=== PATIENT | female | born 1940 | race Caucasian/White ===

== ENCOUNTER 2016-05-08 13:38 | Outpatient (CLI) | payer MEDICARE, OTHER | END 2016-05-08 13:39 | disposition home or self-care (01) | DX: I48.91 Unspecified atrial fibrillation (principal) ==

== ENCOUNTER 2016-05-16 11:11 | Outpatient (CLI) | payer MEDICARE, OTHER | END 2016-05-16 11:12 | disposition home or self-care (01) | DX: I48.91 Unspecified atrial fibrillation (principal) ==

== ENCOUNTER 2016-05-23 17:43 | Outpatient (CLI) | payer MEDICARE, OTHER | END 2016-05-23 17:44 | disposition home or self-care (01) | DX: M89.9 Disorder of bone, unspecified (principal); Z85.79 Personal history of other malignant neoplasms of lymphoid, hematopoietic and related tissues ==

== ENCOUNTER 2016-05-23 17:44 | Outpatient (CLI) | payer MEDICARE, OTHER ==
[2016-05-23] MEDS ORDERED: IOPAMIDOL-300 100 ML VIAL IVP ONE (21:58)
== END 2016-05-23 17:45 | disposition home or self-care (01) ==
DX: M48.54XA Collapsed vertebra, not elsewhere classified, thoracic region, initial encounter for fracture (principal); M48.56XA Collapsed vertebra, not elsewhere classified, lumbar region, initial encounter for fracture; M89.9 Disorder of bone, unspecified; Z85.79 Personal history of other malignant neoplasms of lymphoid, hematopoietic and related tissues; M51.86 Other intervertebral disc disorders, lumbar region
CPT/HCPCS: 72133; 72194; Q9967

== ENCOUNTER 2016-06-04 | Outpatient (CLI) | payer MEDICARE, OTHER | END 2016-06-04 21:33 | disposition critical access hospital (66) | CPT/HCPCS: A0425; A0427 ==

== ENCOUNTER 2016-06-04 13:40 | Outpatient (CLI) | payer MEDICARE, OTHER | END 2016-06-04 13:41 | disposition home or self-care (01) | DX: I48.91 Unspecified atrial fibrillation (principal) ==

== ENCOUNTER 2016-06-04 21:52 | Inpatient (IN) | payer MEDICARE, OTHER ==
[2016-06-04] MEDS ORDERED: PHYTONADIONE 10 MG/ML AMP IVP STA (22:12)
[2016-06-04] MEDS ORDERED: PHYTONADIONE 10 MG/ML AMP ONE (22:26)
[2016-06-04] MEDS ORDERED: PROCHLORPERAZINE 10 MG/2 ML VIAL IVP PRN (23:12)
[2016-06-04] MEDS ORDERED: ONDANSETRON 4 MG/2 ML VIAL IVP PRN (23:12)
[2016-06-04] MEDS ORDERED: SODIUM CHLORIDE FLUSH 0.9% 10 ML SYRINGE IVP PRN (23:12)
[2016-06-05] MEDS: PANTOPRAZOLE 40 MG VIAL IVP SCH ×3 (00:56→15:23)
[2016-06-05] MEDS: SODIUM CHLORIDE FLUSH 0.9% 10 ML SYRINGE IVP SCH ×3 (00:56→21:37)
[2016-06-05] MEDS: ACETAMINOPHEN 325 MG TABLET PO PRN ×2 (04:09→21:44)
[2016-06-05] MEDS: LEVOTHYROXINE 25 MCG TABLET PO SCH (06:28)
[2016-06-05] MEDS: METOPROLOL TARTRATE 50 MG TABLET PO SCH (08:16)
[2016-06-05] MEDS: LISINOPRIL 5 MG TABLET PO SCH (08:16)
[2016-06-05] MEDS: POLYETHYLENE GLYCOL 3350 17 GM PACKET PO SCH (08:20)
[2016-06-05] MEDS: SODIUM/POTASSIUM/MAG SULFATES 354 ML PREP KIT PO SCH (18:04)
[2016-06-05] MEDS ORDERED: ZINC OXIDE 20% OINT 28.35 GM TUBE TOP PRN (20:38)
[2016-06-06] MEDS: SODIUM/POTASSIUM/MAG SULFATES 354 ML PREP KIT PO SCH (04:08)
[2016-06-06] MEDS: SODIUM CHLORIDE FLUSH 0.9% 10 ML SYRINGE IVP SCH (06:11)
[2016-06-06] MEDS: PANTOPRAZOLE 40 MG VIAL IVP SCH (06:24)
[2016-06-06] MEDS ORDERED: LACTATED RINGERS 1,000 ML IV ONE (07:15)
[2016-06-06] MEDS ORDERED: BENZOCAINE/TETRACAINE/BUTAMBEN SPRAY 56 GM TOP ONE (07:24)
[2016-06-06] MEDS ORDERED: LIDO GARGLE 30 ML BOTTLE PO ONE (07:24)
[2016-06-06] MEDS ORDERED: fentaNYL 100 MCG/2 ML VIAL IVP ONE (07:24)
[2016-06-06] MEDS: LISINOPRIL 5 MG TABLET PO SCH (09:25)
[2016-06-06] MEDS: LEVOTHYROXINE 25 MCG TABLET PO SCH (09:25)
[2016-06-06] MEDS: METOPROLOL TARTRATE 50 MG TABLET PO SCH (09:26)
[2016-06-06] MEDS: POLYETHYLENE GLYCOL 3350 17 GM PACKET PO SCH (09:27)
[2016-06-06] MEDS ORDERED: oxyCODONE 5 MG TABLET PO PRN (10:05)
[2016-06-06] MEDS ORDERED: MIDAZOLAM 2 MG/2 ML VIAL IVP ONE (13:40)
[2016-06-07] MEDS ORDERED: fentaNYL 100 MCG/2 ML VIAL IVP ONE (07:14)
== END 2016-06-06 13:41 | disposition home or self-care (01) | DRG 812 ==
PROC: 30233K1 Transfusion of Nonautologous Frozen Plasma into Peripheral Vein, Percutaneous Approach (ICD-10-PCS; principal; 2016-06-04)
PROC: 30233N1 Transfusion of Nonautologous Red Blood Cells into Peripheral Vein, Percutaneous Approach (ICD-10-PCS; 2016-06-05)
PROC: 0D9 Gastrointestinal System, Drainage (ICD-10-PCS; 2016-06-06)
PROC: 0DJ08ZZ Inspection of Upper Intestinal Tract, Via Natural or Artificial Opening Endoscopic (ICD-10-PCS; 2016-06-06 06:30)
DX: D62 Acute posthemorrhagic anemia (principal); K92.2 Gastrointestinal hemorrhage, unspecified; D50.0 Iron deficiency anemia secondary to blood loss (chronic); I48.91 Unspecified atrial fibrillation; K55.9 Vascular disorder of intestine, unspecified; K62.5 Hemorrhage of anus and rectum; E87.1 Hypo-osmolality and hyponatremia; S22.080A Wedge compression fracture of T11-T12 vertebra, initial encounter for closed fracture; S32.020A Wedge compression fracture of second lumbar vertebra, initial encounter for closed fracture; Z90.49 Acquired absence of other specified parts of digestive tract; I48.2 Chronic atrial fibrillation; Z79.01 Long term (current) use of anticoagulants; E03.9 Hypothyroidism, unspecified; Z92.3 Personal history of irradiation; I10 Essential (primary) hypertension; Z85.830 Personal history of malignant neoplasm of bone; Z85.060 Personal history of malignant carcinoid tumor of small intestine; Z85.038 Personal history of other malignant neoplasm of large intestine; Z87.891 Personal history of nicotine dependence; Z80.1 Family history of malignant neoplasm of trachea, bronchus and lung; Z80.3 Family history of malignant neoplasm of breast; E53.8 Deficiency of other specified B group vitamins; E55.9 Vitamin D deficiency, unspecified; M89.9 Disorder of bone, unspecified; K43.9 Ventral hernia without obstruction or gangrene; K64.8 Other hemorrhoids; K64.4 Residual hemorrhoidal skin tags; X58.XXXA Exposure to other specified factors, initial encounter; Z79.899 Other long term (current) drug therapy

== ENCOUNTER 2016-06-07 13:11 | Outpatient (CLI) | payer MEDICARE, OTHER | END 2016-06-07 13:12 | disposition home or self-care (01) | DX: I48.91 Unspecified atrial fibrillation (principal) ==

== ENCOUNTER 2016-06-14 13:55 | Outpatient (CLI) | payer MEDICARE, OTHER | END 2016-06-14 13:56 | disposition home or self-care (01) | DX: I48.91 Unspecified atrial fibrillation (principal) ==

== ENCOUNTER 2016-06-21 13:13 | Outpatient (CLI) | payer MEDICARE, OTHER | END 2016-06-21 13:14 | disposition home or self-care (01) | DX: I48.91 Unspecified atrial fibrillation (principal) ==

== ENCOUNTER 2016-06-28 21:32 | Outpatient (CLI) | payer MEDICARE, OTHER | END 2016-06-28 21:33 | disposition home or self-care (01) | DX: I48.91 Unspecified atrial fibrillation (principal) ==

== ENCOUNTER 2016-07-05 08:00 | Outpatient (CLI) | payer MEDICARE, OTHER | END 2016-07-05 08:01 | disposition home or self-care (01) | DX: I48.91 Unspecified atrial fibrillation (principal) ==

== ENCOUNTER 2016-07-12 13:02 | Outpatient (CLI) | payer MEDICARE, OTHER | END 2016-07-12 13:03 | disposition home or self-care (01) | DX: I48.91 Unspecified atrial fibrillation (principal) ==

== ENCOUNTER 2016-07-19 13:08 | Outpatient (CLI) | payer MEDICARE, OTHER | END 2016-07-19 13:09 | disposition home or self-care (01) | DX: I48.91 Unspecified atrial fibrillation (principal) ==

== ENCOUNTER 2016-07-26 13:19 | Outpatient (CLI) | payer MEDICARE, OTHER | END 2016-07-26 13:20 | disposition home or self-care (01) | DX: I48.91 Unspecified atrial fibrillation (principal) ==

== ENCOUNTER 2016-07-29 09:54 | Outpatient (CLI) | payer MEDICARE, OTHER | END 2016-07-29 09:55 | disposition home or self-care (01) | DX: I48.91 Unspecified atrial fibrillation (principal) ==

== ENCOUNTER 2016-08-02 14:11 | Outpatient (CLI) | payer MEDICARE, OTHER | END 2016-08-02 14:12 | disposition home or self-care (01) | DX: I48.91 Unspecified atrial fibrillation (principal) ==

== ENCOUNTER 2016-08-03 01:46 | Outpatient (CLI) | payer MEDICARE, OTHER | END 2016-08-03 01:47 | disposition home or self-care (01) | DX: R19.7 Diarrhea, unspecified (principal) ==

== ENCOUNTER 2016-08-08 08:00 | Outpatient (CLI) | payer MEDICARE, OTHER | END 2016-08-08 08:01 | disposition home or self-care (01) | DX: I48.91 Unspecified atrial fibrillation (principal) ==

== ENCOUNTER 2016-08-13 12:30 | Outpatient (CLI) | payer MEDICARE, OTHER | END 2016-08-13 12:31 | disposition home or self-care (01) | DX: Z51.5 Encounter for palliative care (principal); C90.02 Multiple myeloma in relapse; R19.7 Diarrhea, unspecified; R15.9 Full incontinence of feces; K59.00 Constipation, unspecified; L89.100 Pressure ulcer of unspecified part of back, unstageable; L89.102 Pressure ulcer of unspecified part of back, stage 2; R53.83 Other fatigue; M54.9 Dorsalgia, unspecified; F32.9 Major depressive disorder, single episode, unspecified; Z87.891 Personal history of nicotine dependence; Z90.49 Acquired absence of other specified parts of digestive tract; Z79.899 Other long term (current) drug therapy; Z85.060 Personal history of malignant carcinoid tumor of small intestine ==

== ENCOUNTER 2016-08-16 13:18 | Outpatient (CLI) | payer MEDICARE, OTHER | END 2016-08-16 13:19 | disposition home or self-care (01) | DX: I48.91 Unspecified atrial fibrillation (principal) ==

== ENCOUNTER 2016-08-23 08:48 | Outpatient (CLI) | payer MEDICARE, OTHER | END 2016-08-23 23:59 | DX: I48.91 Unspecified atrial fibrillation (principal) ==

== ENCOUNTER 2016-09-02 13:16 | Outpatient (CLI) | payer MEDICARE, OTHER | END 2016-09-02 23:59 | disposition home or self-care (01) | DX: I48.91 Unspecified atrial fibrillation (principal) ==

== ENCOUNTER 2016-09-09 13:02 | Outpatient (CLI) | payer MEDICARE, OTHER | END 2016-09-09 13:03 | disposition home or self-care (01) | DX: I48.91 Unspecified atrial fibrillation (principal) ==

== ENCOUNTER 2016-09-23 08:00 | Outpatient (CLI) | payer MEDICARE, OTHER | END 2016-09-23 08:01 | disposition home or self-care (01) | LOC: LAB.N 08:00 | PROVIDERS: ATTEND Nurse Practitioner Gerontology | DX: I48.91 Unspecified atrial fibrillation (principal) | CPT/HCPCS: 85610 ==

== ENCOUNTER 2016-09-27 13:14 | Outpatient (CLI) | payer MEDICARE, OTHER ==
--- NOTE | 2016-10-01 07:08 | CONSULTATION NOTE ---
DATE OF CONSULTATION: 09/27/2016 00:00:00 REQUESTING PROVIDER: Yuridia Altamirano MD (Wendy) TIME OF VISIT: 1:45-2:30. TOPIC: Followup palliative care consult. Thank you, Dr. Altamirano, for asking the Palliative Care Consult Service to be involved in the care of you r patient. I am asked to provide support for pain and symptom management and goals of care. EXAM LIMITATIONS: The patient is severely depressed and easily overwhelmed; has difficulty concentrat ing on our visit or participating in counseling. 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 She was also recently diagnosed with multiple myeloma of lambda light chain type, she is currently on Velcade and dexamethasone; and she does have ongoing pancytopenia secondary to the myeloma progression of bone ma rrow. This has required intermittent blood transfusions. She has a history of colon cancer status pos t resection in 2010 with recurrence in 2014. She did have a hospitalization in May, had a colonos copy with multiple testing on her stool, all of which have come back negative. Her biggest distress continues to be her ongoing chronic diarrhea. This has essentially somewhat over whelmed her life, though she has been having it controlled fairly well on 2 doses of Lomotil in the e vening an hour before she goes to bed, and again at bedtime. Her biggest fear has been incontinence o f it. She does occasionally take some during the day, but does have every 3-4 days fairly loose stool that worries her incessantly. She did have one episode of incontinence over the last several weeks, but otherwise it is much better controlled. She does have a fairly pronounced abdominal hernia, which causes her quite a bit of angst as well as discomfort. She just has difficulty, really, considering a different way despite her friend Thor's gentle coaxing of how better to manage this and is "doing her best." She does have ongoing back pain with a history of compression fractures at 12, 11, L2 with a new lyti c lesion on S1. On examination, when I saw her on 08/13/2016, she also had a pressure ulcer that was causing a lot of acute pain. This has since resolved. Her pain is much improved. She is managed on ju st a daily oxycodone with occasional second one in the evening. She does appear quite frail in nature . She has difficulty making eye contact. She gets easily overwhelmed with questions or talking about her current situation. She does feel hopeless and helpless, but is adamant that she is not depressed. SYMPTOM BURDEN: She has intermittent back pain. She reports fatigue most days and is sort of overwhel med by just managing her current routine and trying to get enough food and calories in. She is up at night to urinate, and as well is concerned about being incontinent of stool. She does have a poor jr etite, and does get shortness of breath with activity. She denies depression, though presents with de pressive symptoms, is highly anxious, and perceives her quality of life as quite poor. ALLERGIES: NO KNOWN DRUG ALLERGIES. MEDICATIONS: No changes from her medication list from 08/13/2016. CODE STATUS: She is a FULL CODE. Her durable power of health workers compensation attorney is her stepdaughter, Liv Calero, ; her friend Thor, provides most of her support, as well as transportation and oversight of getting her me dical needs met. BRIEF SOCIAL HISTORY: The patient has very little community support, other than her friend Thor. She, herself, is very introverted; the thought of someone coming in and helping her just about puts her o lorena the edge. She is and has limited financial resources, including no Medicare D for prescri ptions. The patient is able to ambulate short distances, though with increase in her lower extremity edema, t his is more difficult. She is quite weak. She has been only doing sponge baths, as she is afraid of f alling. She gets her IADL needs assistance from her neighbor, Thor. [facility] are performance status of 80%. REVIEW OF SYSTEMS HEENT: She does have dentures; she hates swallowing pills. She has mild hearing loss. CARDIOVASCULAR: She denies chest pain. RESPIRATORY: She does have shortness of breath with activity. GASTROINTESTINAL: As noted above, part of her difficulty actually is also with meal prep. GENITOURINARY: She is voiding without difficulty. MUSCULOSKELETAL: She does sit most of the time, has a lot of stiffness and weakness, and now with her back pain she is quite deconditioned. INTEGUMENTARY: Her pressure ulcer is improved. NEUROLOGIC: She is quite emotionally distressed; does appear to have some memory problems, difficulty tracking the conversation. I had hoped to get a baseline MMSE, but it appears she is too emotionally fragile to go there today. PSYCHIATRIC: The patient presents with a depressed mood and anxiety. She also has a lot of distress w hen asked if she was depressed. She says, "well, wouldn't you be" with all the things that she has be en going on. ENDOCRINE: She is on thyroid medication. HEMATOLOGIC/IMMUNOLOGIC: She has had some difficulty with pancytopenia, had received intermittent tra nsfusions, and some erratic pro-times related to her chemotherapy. PHYSICAL EXAMINATION GENERAL APPEARANCE: The patient appears quite pale. She has difficulty making eye contact, is very te arful, appears fatigued. HEENT: Eyes: Wearing sunglasses, periorbital edema. ENT: She has dentures. NECK: Trachea midline. No JVD. RESPIRATORY: Her breath sounds are diminished but clear. CARDIOVASCULAR: Her pulse is 52 and regular. ABDOMEN: She has a rounded hernia about the size of a cantaloupe, soft on palpation. Bowel tones are normal. SKIN: Does appear to healing nice and thinned. EXTREMITIES: She does have increased lower extremity edema 2 to 3+ up to about her thighs. She repor ts this has been longstanding before her multiple myeloma. I suspect it may also be related to some l ymphedema as well. PALLIATIVE CARE DISCUSSION/WHO IS PRESENT: Myself and her neighbor, Thor. I did try and coax the sol ent into describing some of her stressors, her barriers to getting assistance, tried to explore some of her strengths and if she found any savage. She reports she has absolutely no savage in her life. She polo es a miserable experience. She has just been waiting, that she is never going to get better, so why i s she doing all of this. When reviewed that there has been some improvement on her chemotherapy, she is quite distraught that she is just in this place, that she does not perceive it as a good quality o f life. When approached, she definitely does not want to talk to anybody, does not want a psychiatris t. When asked if she would consider some medication to help her feel a little bit better, such as an antidepressant, she was very adamant that she was not depressed and that she could not take one more pill. The patient has no drug coverage; had talked about just a fairly cheap old-fashioned trazodone that might help her with sleep and essentially got nowhere. Her neighbor, as well, is worried about h er mood and her ongoing distress; all feeling that if we could help her lighten up some, in her place of suffering, that she may find some acceptance of her current situation. I did address, again, perh aps needing help through the [facility] program, she was not interested. I suggested perhaps adaptive physical education specialist apy to help her get stronger, she cannot imagine another appointment; so many barriers, as far as thi ngs that might improve her current situation. IMPRESSION: This is a very fragile 76-year-old woman with history of colon cancer, now with multiple myeloma, receiving active treatment with high symptom burden of diarrhea, fatigue, pain, and existent ial distress. She does present with symptoms of depression, though she adamantly denies such. RECOMMENDATIONS/COUNSELING DONE 1. Diarrhea alternating with constipation. This does seem to be somewhat improved. She does still hav e a fluctuating status; they cannot tell if it is related to her timing of her chemotherapy. When she does finally go, her stools are quite watery and more likely related to her past surgical history. I did encourage perhaps some Metamucil; Thor did not think she would really drink it in a timely way. Patient does eat cookies, suggested just some fiber bars to help put a little bulk in her stool, so t hat she does not have so much incontinence and watery stool when she does have to go, particularly du ring the day. She is not currently interested in doing anything different with her Lomotil, so a new prescription was provided for her. Unfortunately she does not have prescription coverage, so this is very expensive for her. 2. Pain secondary to history of compression fractures. She is being managed mostly with just 1/2 oxyc odone in the a.m. and intermittent Tylenol. Her decubitus is healed, so the acute component of that i s improved. 3. Anorexia. Multifactorial in origin. She has poor intake including both food and fluids; is working as best she can in her estimation. She has no appetite. I did offer physical therapy for joãoi ng. Patient is quite sedentary. 4. Depressive symptoms. The patient is feeling overwhelmed. The patient would probably best benefit f rom some mirtazapine, though this is closer to $90 a month, outside of her budget; I did suggest perh aps some trazodone about 10$ a month, as this helps with pain, sleep, and depression. We could start really slowly and titrate up slowly. She was actually quite distressed by this. I did give a prescrip tion, though, to her neighbor, who says that often it takes time to talk her into things. She very mu ch dislikes changes and is overall perceiving her quality of life as quite poor and a high sense of s uffering as a result. 5. Advanced care planning. The patient does understand she has a serious illness, that it is not laura g to get better. She perceives her quality of life as poor and is just waiting for this "to all be ov er with." I did not present any further advanced care planning forms or conversation, just provided s upport of good listening regarding her distress. Time spent 45 minutes, with greater than 50% of this spent in counseling, coordination of care, attem pting to establish rapport, addressing depressive symptoms. The patient is quite resistant, multiple barriers and is easily overwhelmed. I will continue to work with her on a regular basis in hopes to m luis some progress and improve her quality of life. JOB #: [id number] EXT JOB #:[id number]
== END 2016-09-27 13:15 | disposition home or self-care (01) ==
LOC: PC 13:14
PROVIDERS: ATTEND Nurse Practitioner Adult Health
DX: Z51.5 Encounter for palliative care (principal); K52.9 Noninfective gastroenteritis and colitis, unspecified; K59.00 Constipation, unspecified; M54.9 Dorsalgia, unspecified; R63.0 Anorexia; R45.89 Other symptoms and signs involving emotional state; K46.9 Unspecified abdominal hernia without obstruction or gangrene; C90.00 Multiple myeloma not having achieved remission; Z79.899 Other long term (current) drug therapy; Z92.3 Personal history of irradiation; Z79.52 Long term (current) use of systemic steroids; Z85.038 Personal history of other malignant neoplasm of large intestine; Z79.891 Long term (current) use of opiate analgesic
CPT/HCPCS: 99215

== ENCOUNTER 2016-10-01 08:00 | Outpatient (CLI) | payer MEDICARE, OTHER | END 2016-10-01 08:01 | disposition home or self-care (01) | LOC: LAB.N 08:00 | PROVIDERS: ATTEND Nurse Practitioner Gerontology | DX: I48.91 Unspecified atrial fibrillation (principal) | CPT/HCPCS: 85610 ==

== ENCOUNTER 2016-10-07 08:00 | Outpatient (CLI) | payer MEDICARE, OTHER | END 2016-10-07 08:01 | disposition home or self-care (01) | LOC: LAB.N 08:00 | PROVIDERS: ATTEND Nurse Practitioner Gerontology | DX: I48.91 Unspecified atrial fibrillation (principal) | CPT/HCPCS: 85610 ==

== ENCOUNTER 2016-10-15 10:35 | Outpatient (CLI) | payer MEDICARE, OTHER | END 2016-10-15 10:36 | disposition home or self-care (01) | LOC: LAB.N 10:35 | PROVIDERS: ATTEND Nurse Practitioner Gerontology | DX: I48.91 Unspecified atrial fibrillation (principal) | CPT/HCPCS: 85610 ==

== ENCOUNTER 2016-10-21 11:08 | Outpatient (CLI) | payer MEDICARE, OTHER | END 2016-10-21 11:09 | disposition home or self-care (01) | LOC: LAB.N 11:08 | PROVIDERS: ATTEND Nurse Practitioner Gerontology | DX: I48.91 Unspecified atrial fibrillation (principal) | CPT/HCPCS: 85610 ==

== ENCOUNTER 2016-10-28 09:37 | Outpatient (CLI) | payer MEDICARE, OTHER | END 2016-10-28 09:38 | disposition home or self-care (01) | LOC: LAB.N 09:37 | PROVIDERS: ATTEND Nurse Practitioner Gerontology | DX: I48.91 Unspecified atrial fibrillation (principal) | CPT/HCPCS: 85610 ==

== ENCOUNTER 2016-11-04 22:10 | Outpatient (CLI) | payer MEDICARE, OTHER | END 2016-11-04 22:11 | disposition home or self-care (01) | LOC: LAB.N 22:10 | PROVIDERS: ATTEND Nurse Practitioner Gerontology | DX: I48.91 Unspecified atrial fibrillation (principal) | CPT/HCPCS: 85610 ==

== ENCOUNTER 2016-11-11 08:00 | Outpatient (CLI) | payer MEDICARE, OTHER | END 2016-11-11 08:01 | disposition home or self-care (01) | DX: I48.91 Unspecified atrial fibrillation (principal) ==

== ENCOUNTER 2016-11-18 07:39 | Outpatient (CLI) | payer MEDICARE, OTHER | END 2016-11-18 07:40 | disposition home or self-care (01) | LOC: LAB.N 07:39 | PROVIDERS: ATTEND Nurse Practitioner Gerontology | DX: I48.91 Unspecified atrial fibrillation (principal) | CPT/HCPCS: 85610 ==

== ENCOUNTER 2016-11-25 13:01 | Outpatient (CLI) | payer MEDICARE, OTHER | END 2016-11-25 23:59 | disposition home or self-care (01) | LOC: LAB.N 13:01 | PROVIDERS: ATTEND Nurse Practitioner Gerontology | DX: I48.91 Unspecified atrial fibrillation (principal) | CPT/HCPCS: 85610 ==

== ENCOUNTER 2016-12-02 09:35 | Outpatient (CLI) | payer MEDICARE, OTHER | END 2016-12-02 09:36 | disposition home or self-care (01) | LOC: LAB.N 09:35 | PROVIDERS: ATTEND Nurse Practitioner Gerontology | DX: I48.91 Unspecified atrial fibrillation (principal) | CPT/HCPCS: 85610 ==

== ENCOUNTER 2016-12-09 18:50 | Outpatient (CLI) | payer MEDICARE, OTHER | END 2016-12-09 18:51 | disposition home or self-care (01) | LOC: LAB.N 18:50 | PROVIDERS: ATTEND Nurse Practitioner Gerontology | DX: I48.91 Unspecified atrial fibrillation (principal) | CPT/HCPCS: 85610 ==

== ENCOUNTER 2016-12-16 09:07 | Outpatient (CLI) | payer MEDICARE, OTHER | END 2016-12-16 09:08 | disposition home or self-care (01) | LOC: LAB.N 09:07 | PROVIDERS: ATTEND Nurse Practitioner Gerontology | DX: I48.91 Unspecified atrial fibrillation (principal) | CPT/HCPCS: 85610 ==

== ENCOUNTER 2016-12-23 09:25 | Outpatient (CLI) | payer MEDICARE, OTHER | END 2016-12-23 09:26 | disposition home or self-care (01) | LOC: LAB.N 09:25 | PROVIDERS: ATTEND Nurse Practitioner Gerontology | DX: I48.91 Unspecified atrial fibrillation (principal) | CPT/HCPCS: 85610 ==

== ENCOUNTER 2016-12-30 09:05 | Outpatient (CLI) | payer MEDICARE, OTHER | END 2016-12-30 09:06 | disposition home or self-care (01) | LOC: LAB.N 09:05 | PROVIDERS: ATTEND Nurse Practitioner Gerontology | DX: I48.91 Unspecified atrial fibrillation (principal) | CPT/HCPCS: 85610 ==

== ENCOUNTER 2017-01-07 09:05 | Outpatient (CLI) | payer MEDICARE, OTHER | END 2017-01-07 09:06 | disposition home or self-care (01) | LOC: LAB.N 09:05 | PROVIDERS: ATTEND Nurse Practitioner Gerontology | DX: I48.91 Unspecified atrial fibrillation (principal) | CPT/HCPCS: 85610 ==

== ENCOUNTER 2017-01-20 08:58 | Outpatient (CLI) | payer MEDICARE, OTHER | END 2017-01-20 08:59 | disposition home or self-care (01) | LOC: LAB.N 08:58 | PROVIDERS: ATTEND Nurse Practitioner Gerontology | DX: I48.91 Unspecified atrial fibrillation (principal) | CPT/HCPCS: 85610 ==

== ENCOUNTER 2017-02-04 08:00 | Outpatient (CLI) | payer MEDICARE, OTHER | END 2017-02-04 08:01 | disposition home or self-care (01) | LOC: LAB.N 08:00 | PROVIDERS: ATTEND Nurse Practitioner Gerontology | DX: I48.91 Unspecified atrial fibrillation (principal) | CPT/HCPCS: 85610 ==

== ENCOUNTER 2017-02-25 09:12 | Outpatient (CLI) | payer MEDICARE, OTHER | END 2017-02-25 09:13 | disposition home or self-care (01) | LOC: LAB.N 09:12 | PROVIDERS: ATTEND Nurse Practitioner Gerontology | DX: I48.91 Unspecified atrial fibrillation (principal) | CPT/HCPCS: 85610 ==

== ENCOUNTER 2017-03-18 09:50 | Outpatient (CLI) | payer MEDICARE, OTHER | END 2017-03-18 09:51 | disposition home or self-care (01) | LOC: LAB.N 09:50 | PROVIDERS: ATTEND Nurse Practitioner Gerontology | DX: I48.91 Unspecified atrial fibrillation (principal) | CPT/HCPCS: 85610 ==

== ENCOUNTER 2017-03-24 09:14 | Outpatient (CLI) | payer MEDICARE, OTHER | END 2017-03-24 09:15 | disposition home or self-care (01) | LOC: LAB.N 09:14 | PROVIDERS: ATTEND Nurse Practitioner Gerontology | DX: I48.91 Unspecified atrial fibrillation (principal) | CPT/HCPCS: 85610 ==

== ENCOUNTER 2017-04-01 15:12 | Outpatient (CLI) | payer MEDICARE, OTHER | END 2017-04-01 15:13 | disposition home or self-care (01) | LOC: LAB.N 15:12 | PROVIDERS: ATTEND Nurse Practitioner Gerontology | DX: I48.91 Unspecified atrial fibrillation (principal) | CPT/HCPCS: 85610 ==

== ENCOUNTER 2017-04-08 08:00 | Outpatient (CLI) | payer MEDICARE, OTHER | END 2017-04-08 08:01 | disposition home or self-care (01) | LOC: LAB.N 08:00 | PROVIDERS: ATTEND Nurse Practitioner Gerontology | DX: I48.91 Unspecified atrial fibrillation (principal) | CPT/HCPCS: 85610 ==

== ENCOUNTER 2017-04-15 14:43 | Outpatient (CLI) | payer MEDICARE, OTHER | END 2017-04-15 14:44 | disposition home or self-care (01) | LOC: LAB.N 14:43 | PROVIDERS: ATTEND Nurse Practitioner Gerontology | DX: I48.91 Unspecified atrial fibrillation (principal); E03.9 Hypothyroidism, unspecified | CPT/HCPCS: 36415; 84443; 85610 ==

== ENCOUNTER 2017-04-22 08:00 | Outpatient (CLI) | payer MEDICARE, OTHER | END 2017-04-22 08:01 | disposition home or self-care (01) | LOC: LAB.N 08:00 | PROVIDERS: ATTEND Nurse Practitioner Gerontology | DX: I48.91 Unspecified atrial fibrillation (principal) | CPT/HCPCS: 85610 ==

== ENCOUNTER 2017-04-29 08:00 | Outpatient (CLI) | payer MEDICARE, OTHER | END 2017-04-29 08:01 | disposition home or self-care (01) | LOC: LAB.N 08:00 | PROVIDERS: ATTEND Nurse Practitioner Gerontology | DX: I48.91 Unspecified atrial fibrillation (principal) | CPT/HCPCS: 85610 ==